=== PATIENT | female | born 1955 | race Caucasian/White ===

== ENCOUNTER 2023-12-02 02:58 | Emergency (ER) | payer MEDICARE ==
[~2023-12-02] VITALS: Ht 170.2 cm; Wt 100.0 kg
[2023-12-02 03:37] LABS: BASO% 0.6 % (0-3); HEMATOCRIT 40.2 % (37.0-47.0); HEMOGLOBIN 13.7 g/dl (12.0-16.0); IMMATURE GRANULOCYTES 0.6 % (0.0-5.0); LYMPH% 43.4 % (15-41); MEAN CORPUSCULAR HGB CONC 34.1 g/dL CAL (32.0-36.0); MONO% 7.8 % (2-13); NEUT# 3.14 thou/uL (2.00-7.15); NEUT% 45.6 % (42-76); RED BLOOD COUNT 4.42 mill/uL (4.20-5.60); RED CELL DISTRI WIDTH 12.1 % (11.5-15.5)
[2023-12-02] MEDS ORDERED: METOPROLOL SUCC50 MG PO (03:40)
[2023-12-02] MEDS ORDERED: HYDROCHLOROT12.5 M1 PO (03:41)
[2023-12-02] MEDS ORDERED: SODIUM CHLORIDE 0.9% 1,000 ML IV ONE (03:45)
[2023-12-02 03:50] LABS: INTERNATIONAL NORMALIZED RATIO 1.2 RATIO (0.7-1.3)
[2023-12-02 03:53] LABS: PROTHROMBIN TIME 11.2 SECONDS (9.0-12.5)
[2023-12-02 03:54] LABS: ALBUMIN 4.2 g/dL (3.2-5.0); ALKALINE PHOSPHATASE 76 u/l (38-126); ANION GAP 12 (6-22 (CALC)); BILIRUBIN, TOTAL 1.4 mg/dL (0.02-1.3); BUN 15 mg/dL (8-23); BUN/CREATININE RATIO 24 (12-20 (CALC)); CALCULATED LDLCHOLESTEROL 30 mg/dL (62-129 (CALC)); CARBON DIOXIDE 22 mmol/l (22-30); CHLORIDE 111 mmol/l (95-108); CHOLESTEROL HDL RATIO 1.7 (<4.4 (CALC)); CREATININE 0.6 mg/dL (0.5-1.0); ESTIMATED GFR 98 ML/MIN (>=90 (CALC)); HDL CHOLESTEROL 72 mg/dL (39.0-59.0); POTASSIUM 3.2 mmol/l (3.5-5.1); SGOT/AST 37 u/l (9-36); SODIUM 142 mmol/l (137-146); TOTAL CHOLESTEROL 119 mg/dl (0-199); TOTAL PROTEIN 7.4 g/dL (6.3-8.2); TOTAL TRIGLYCERIDES 86 mg/dl (0-149); VLDL CHOLESTROL 17 mg/dl (1-41 (CALC))
[2023-12-02 04:00] VITALS: BP 155/93
[2023-12-02 04:13] LABS: URINE BILIRUBIN - DIPSTICK Negative (NEGATIVE); URINE BLOOD DIPSTICK Moderate (NEGATIVE); URINE GLUCOSE - DIPSTICK Negative (NEGATIVE); URINE KETONE Negative (NEGATIVE); URINE NITRITE - DIPSTICK Negative (Negative); URINE PROTEIN - DIPSTICK Negative (NEG-TRACE); URINE UROBILINOGEN - DIPSTICK 0.2 E.U./dL (0.2)
[2023-12-02 04:14] LABS: URINE COLOR Yellow; URINE LEUK ESTERASE Small (NEGATIVE)
[2023-12-02 04:22] LABS: URINE RBC 0-2 RBC/hpf (0-5); URINE SQUAMOUS EPITHELIAL CELL FEW EPI/hpf (0-FEW)
[2023-12-02 04:30] VITALS: BP 147/87
[2023-12-02 05:20] VITALS: BP 152/87
[2023-12-02 05:30] VITALS: BP 146/88
[2023-12-02 06:00] VITALS: BP 159/99
[2023-12-02] MEDS ORDERED: KEPPRA750 M2 PO (06:01)
[2023-12-02 06:28] VITALS: BP 159/99
== END 2023-12-02 06:28 | disposition home or self-care (01) ==
LOC: ED 02:58
PROVIDERS: Family Medicine
DX: R56.9 Unspecified convulsions (principal); G93.9 Disorder of brain, unspecified; I10 Essential (primary) hypertension; Z87.442 Personal history of urinary calculi
CPT/HCPCS: J1953; Q9967